=== PATIENT | female | born 1980 | race Hispanic/Latino ===

== ENCOUNTER 2018-07-26 22:12 | Emergency (ER) | payer OTHER ==
[2018-07-26 22:32] VITALS: RESP 18; O2SAT 99
[2018-07-26] MEDS ORDERED: Oxycodone/Acetaminophen 5/325 mg Tab PO STA (23:26)
[2018-07-26] MEDS ORDERED: Oxycodone/Acetaminophen 5/325 mg Tab ONE (23:32)
--- NOTE | 2018-07-26 23:36 | ED PDOC ---
HPI: Female Pain Time Seen by Provider: 07/26/18 23:18 Chief Complaint (Nursing): Female Genitourinary Chief Complaint (Provider): left labial swelling History Per: Patient (38 y/o female here with left labial swelling x 3 days. Denies any fevers/chills.) Past Medical History Reviewed: Historical Data, Nursing Documentation, Vital Signs Vital Signs: Last Vital Signs Temp 98.8 F 07/26/18 22:28 Pulse 98 H 07/26/18 22:28 Resp 18 07/26/18 22:28 BP 112/68 07/26/18 22:28 Pulse Ox 99 07/26/18 22:28 - Family History Family History: States: No Known Family Hx - Home Medications Home Medications: Ambulatory Orders Medication Instructions Recorded Naproxen 375 mg PO Q8 PRN #21 tablet 07/27/18 oxyCODONE/Acetaminophen [Percocet 1 ea PO Q6 PRN #10 tab 07/27/18 5/325 mg Tab] - Allergies Allergies/Adverse Reactions: Allergies Allergy/AdvReac Type Severity Reaction Status Date / Time No Known Allergies Allergy Verified 07/26/18 22:28 Review of Systems ROS Statement: Except As Marked, All Systems Reviewed And Found Negative Physical Exam - Reviewed Nursing Documentation Reviewed: Yes Vital Signs Reviewed: Yes - Physical Exam Appears: Positive for: Well, Non-toxic, No Acute Distress Head Exam: Positive for: ATRAUMATIC, NORMAL INSPECTION, NORMOCEPHALIC Skin: Positive for: Normal Color, Warm, DRY Eye Exam: Positive for: EOMI, Normal appearance, PERRL ENT: Positive for: Normal ENT Inspection Neck: Positive for: Normal, Painless ROM Cardiovascular/Chest: Positive for: Regular Rate, Rhythm Respiratory: Positive for: CNT, Normal Breath Sounds Gastrointestinal/Abdominal: Positive for: Normal Exam, Soft Pelvic Exam: Positive for: Other (swelling left labial region with fluctuance/erythema) Back: Positive for: Normal Inspection Extremity: Positive for: Normal ROM Neurologic/Psych: Positive for: Alert, Oriented - ECG O2 Sat by Pulse Oximetry: 99 - Progress ED Course And Treament: Percocet 5/325 mg x 1 dose d/w Dr. Vargas. seen by Dr. Vargas. Bartholin's cyst drained partially in ED. Patient to f/u with her on Thursday. Disposition - Clinical Impression Clinical Impression: Bartholin's gland abscess - Patient ED Disposition Is Patient to be Admitted: No - Disposition Disposition: Routine/Home Disposition Time: 01:07 Condition: FAIR Prescriptions: Naproxen 375 mg PO Q8 PRN #21 tablet PRN Reason: Pain, Moderate (4-7) oxyCODONE/Acetaminophen [Percocet 5/325 mg Tab] 1 ea PO Q6 PRN #10 tab PRN Reason: Pain, Severe (8-10) Instructions: Bartholin's Gland Cyst
[2018-07-27] MEDS ORDERED: Lidocaine/Epi 1% 1:100000 20 ML IJ ONE (00:21)
[2018-07-27] MEDS ORDERED: Povidone Iodine Topical 10% Sol ONE (00:27)
[2018-07-27] MEDS ORDERED: Lidocaine 1% w Epi 1:100,000 Inj ONE (00:27)
--- NOTE | 2018-07-27 01:21 | CP.PCM.CON ---
History of Present Illness - History of Present Illness History of Present Illness: 38 yo female with Bartholian abscess presents to ER with severe pain. Patient was visiting from [place] and has never had this Bartholian abscess before and for the last few days the left Bartholian grew considerably in size. Patient denies drainage, bleeding, reports severe pain, difficulty walking, no fever, no vomiting. On exam patient has a 5cm left labial errythematous painful bartholian abscess, non spontaneously draining. No other positive signs/symptoms Past Patient History - Past Social History Smoking Status: Never Smoked - PSYCHIATRIC Hx Substance Use: No Meds Home Medications: Home Medication List Medication Instructions Recorded Confirmed Type Naproxen 375 mg PO Q8 PRN #21 tablet 07/27/18 Rx oxyCODONE/Acetaminophen [Percocet 1 ea PO Q6 PRN #10 tab 07/27/18 Rx 5/325 mg Tab] Allergies/Adverse Reactions: Allergies Allergy/AdvReac Type Severity Reaction Status Date / Time No Known Allergies Allergy Verified 07/26/18 22:28 Physical Exam - Head Exam Head Exam: ATRAUMATIC - Eye Exam Eye Exam: Normal appearance Pupil Exam: NORMAL ACCOMODATION - Respiratory Exam Respiratory Exam: NORMAL BREATHING PATTERN - Cardiovascular Exam Cardiovascular Exam: REGULAR RHYTHM - GI/Abdominal Exam GI & Abdominal Exam: Normal Bowel Sounds, Soft - Exam Additional comments: left labial bartholian abscess, non-draining about 6cm, errythematous, no lesions, no masses - Neurological Exam Neurological exam: Oriented x3 - Psychiatric Exam Psychiatric exam: Normal Affect - Skin Skin Exam: Normal Color, Warm Results - Vital Signs Recent Vital Signs: Last Vital Signs Temp 98.8 F 07/26/18 22:28 Pulse 98 H 07/26/18 22:28 Resp 18 07/26/18 22:28 BP 112/68 07/26/18 22:28 Pulse Ox 99 07/27/18 01:09 Assessment & Plan - Assessment and Plan (Free Text) Assessment: A/P 1. patient had a painful indurated left labial Bartholian abscess - discussed with patient I&D. Cleaned area with Betadine, injected locally with Lidocaine and incised with 10 blade. serous-sanginous fluid was expressed, abscess was reduced by 50%. small area of drainage was made by introitus. 2. Discussed with patient liberally using sitz baths for the next few days and having follow up in office 3. Pain medication with Ibuprofen and Percocet 4. Does not need antibiotics at this point 5. Will see patient for follow up, all questions answered - Date & Time Date: 07/27/18 Time: 01:20
[2018-07-27 01:33] VITALS: BP 103/57; PULSE 81; TEMP 98.1
== END 2018-07-27 01:55 | disposition home or self-care (01) ==
LOC: H.ER 22:12
DX: N75.1 Abscess of Bartholin's gland (principal)